=== PATIENT | male | born 1950 | race Caucasian/White ===

== ENCOUNTER 2021-02-10 22:56 | Observation (INO) | payer OTHER, MEDICAID ==
[~2021-02-10] VITALS: Ht 157.5 cm; Wt 70.3 kg
--- NOTE | 2021-02-10 22:56 | NUR ---
PT HARRY ALS. TAKEN TO BED 6
[2021-02-10 22:57] VITALS: BP 149/89
--- NOTE | 2021-02-10 22:57 | NUR ---
biba from home c/o sudden onset of c/p. substernal chest pressure non radiating 03/11. patient was taking BP and caused some anxiety when sbp was in the 140s, patient immediately took HTN meds and Eloquis. denies SOB, difficulty breathing, n/v/d, fevers. patient had recently experienced an WA on july 31 and had a stent placed. AAOx4. VSS. PMH: HTN, WA, Stent placed july 31 NKA
--- NOTE | 2021-02-10 22:59 | NUR ---
Dr. Argueta examining patient.
[2021-02-10 23:34] LABS: BASOPHILS % (AUTO) 0.6 % (0.0-2.0); EOSINOPHILS # (AUTO) 0.1 K/uL (0-0.4); EOSINOPHILS % (AUTO) 2.2 % (0.0-4.0); HEMATOCRIT 44.9 % (36-52); HEMOGLOBIN 15.3 g/dL (12.0-18.0); LYMPHOCYTES # (AUTO) 2.8 K/uL (2.0-11.5); LYMPHOCYTES % (AUTO) 42.9 % (20.5-51.1); MEAN CORPUSCULAR HEMOGLOBIN 31 pg (27-31); MEAN CORPUSCULAR HGB CONC 34 g/dL (33-37); MEAN CORPUSCULAR VOLUME 89.4 fL (80-94); MONOCYTES # (AUTO) 0.6 K/uL (0.8-1.0); MONOCYTES % (AUTO) 9.5 % (1.7-9.3); NEUTROPHILS # (AUTO) 2.9 K/uL (1.8-7.7); NEUTROPHILS % (AUTO) 44.8 % (42.2-75.2); PLATELET COUNT (AUTO) 151 K/uL (140-450); RED BLOOD CELL COUNT(AUTO) 5.02 MIL/uL (4.20-6.10); RED CELL DISTRIBUTION WIDTH 13.1 % (11.6-13.7); WHITE BLOOD COUNT (AUTO) 6.5 K/uL (4.8-10.8)
--- NOTE | 2021-02-10 23:42 | NUR ---
patient ambulated to the bathroom, and collected urine
[2021-02-11 00:02] LABS: ALBUMIN 3.8 g/dL (3.4-5.0); CARBON DIOXIDE 27.8 mmol/L (21-32); CREATININE 0.9 mg/dL (0.6-1.3); POTASSIUM 3.8 mmol/L (3.5-5.1); TOTAL BILIRUBIN 0.3 mg/dL (0.0-1.0)
[2021-02-11 00:07] LABS: PROTHROMBIN TIME 9.5 secs (10.8-13.4)
--- NOTE | 2021-02-11 07:16 | NUR ---
Pt report given to Adán GORE. Transfer of care at this time.
--- NOTE | 2021-02-11 07:16 | NUR ---
Report and continuation of care received from BAO Terrell.
[2021-02-11] MEDS ORDERED: MORPHINE SULFATE 4 MG/ML SYR IVP PRN (07:35)
[2021-02-11] MEDS ORDERED: KCL 20 MEQ/WATER INJ PREMIX 200 ML IV PRN (07:35)
[2021-02-11] MEDS ORDERED: ACETAMINOPHEN 325 MG TAB PO PRN (07:35)
[2021-02-11] MEDS ORDERED: MAG SULF 2000 MG/WATER PREMIX 50 ML IV PRN (07:35)
[2021-02-11] MEDS ORDERED: ONDANSETRON 4 MG/2 ML VIAL IVP PRN (07:35)
[2021-02-11] MEDS ORDERED: POTASSIUM CHLORIDE 10 MEQ TABER PO PRN (07:35)
[2021-02-11] MEDS ORDERED: MAGNESIUM OXIDE 400 MG TAB PO PRN (07:35)
[2021-02-11] MEDS ORDERED: HYDROcodone/APAP 5/325 MG 1 TAB TAB PO PRN (07:35)
--- NOTE | 2021-02-11 08:25 | NUR ---
Patient resting in semi-fowlers position. Denies any chest pain, N/V/D. equipment monitor phototypesetting remains in place. Bed locked in lowest position, side rails x 1, call light in reach.
[2021-02-11] MEDS ORDERED: ENOXAPARIN 40 MG/0.4 ML SYR SUBQ SCH (09:00)
[2021-02-11] MEDS ORDERED: DOCUSATE SODIUM 100 MG GELCAP PO SCH (09:00)
--- NOTE | 2021-02-11 09:30 | NUR ---
Santiago (son) at bedside with pt.
--- NOTE | 2021-02-11 09:35 | NUR ---
Breakfast tray at bedside. Patient completing meal at this time.
--- NOTE | 2021-02-11 09:40 | NUR ---
Patient resting in semi-fowlers position. Denies any chest pain, N/V/D. conveyor monitor remains in place. Bed locked in lowest position, side rails x 1, call light in reach.
--- NOTE | 2021-02-11 09:43 | NUR ---
PATIENT HAS BEEN SCREENED AND CATEGORIZED MODERATE NUTRITION RISK. PATIENT WILL BE SEEN WITHIN 3-5 DAYS OF ADMISSION. 02/13/2021-02/15/[address]
[2021-02-11] MEDS ORDERED: CLOP75TA55 PO (11:07)
[2021-02-11] MEDS ORDERED: ATOR40TA PO (11:07)
[2021-02-11] MEDS ORDERED: APIX5TAB PO (11:07)
[2021-02-11] MEDS ORDERED: METO25TE2 PO (11:07)
--- NOTE | 2021-02-11 11:12 | NUR ---
Patient resting in semi-fowlers position. VSS; no distress noted. playground monitor remains in place. Bed locked in lowest position, side rails x 1, call light in reach.
--- NOTE | 2021-02-11 11:30 | NUR ---
Patient ambulated to restroom with steady/even gait.
--- NOTE | 2021-02-11 11:36 | NUR ---
Pt placed back onto bisque kiln placer. VSS; respirations even/unlabored. Son remains at bedside.
--- NOTE | 2021-02-11 12:15 | NUR ---
Lunch tray at bedside. Pt completing meal at this time. All pt needs met.
--- NOTE | 2021-02-11 12:32 | NUR ---
PT RESTING WITH BOTH EYES OPEN IN SEMI-FOWLERS. DENIES ANY CHEST PAIN, N/V/D. CARDIAC MONTIOR REMAINS IN PLACE. VSS; RESPIRATIONS EVEN/UNLABORED.
--- NOTE | 2021-02-11 15:33 | NUR ---
Santiago back at bedside.
--- NOTE | 2021-02-11 16:01 | NUR ---
Daughter (ANAY) at bedside.
--- NOTE | 2021-02-11 16:57 | NUR ---
Patient states he has pain to Right popliteal, reports it feels like "nerves bunched in a ball." Denies any SOB, numbness/tingling. States worsens with ambulating or bending right knee. Ice pack applied.
--- NOTE | 2021-02-11 17:27 | NUR ---
Dr. Valles is evaluating patient at bedside. Advised of patient's pain behind R knee.
[2021-02-11 17:46] VITALS: BP 130/75
== END 2021-02-11 17:46 | disposition home or self-care (01) ==
LOC: MED 22:56 → MTU 02-11 07:40
PROVIDERS: ADMIT Hospitalist; ATTEND Hospitalist
DX: R07.89 Other chest pain (principal); I10 Essential (primary) hypertension; I25.10 Atherosclerotic heart disease of native coronary artery without angina pectoris; E78.5 Hyperlipidemia, unspecified; Z95.818 Presence of other cardiac implants and grafts; Z79.899 Other long term (current) drug therapy
CPT/HCPCS: 36415; 71045; 80053; 83880; 84484; 85025; 85610; 85730; 93005; 96372; 99285; G0378; J1650; Q0092; 96365; 96366; 96367; 99291